=== PATIENT | female | born 1990 | race American Indian/Alaskan Native ===

== ENCOUNTER 2020-04-23 14:41 | Emergency (ER) | payer SELFPAY ==
[2020-04-23 15:03] VITALS: BP 149/93
[2020-04-23] MEDS ORDERED: IBUPROFEN 600 MG TAB PO ONE (15:26)
--- NOTE | 2020-04-23 15:31 | Emergency Department Report ---
ED ENT HPI - General Chief complaint: Dental/Oral Stated complaint: JAW LOCKING/CANT SLEEP Time Seen by Provider: 04/23/20 15:26 Source: patient Mode of arrival: Ambulatory Limitations: No Limitations - History of Present Illness Initial comments: 30-year-old -Portuguese female presents to the emergency room complaining of bilateral jaw popping and pain. Patient has a history of TMJ and has been off and on wearing her mouthguard. Patient states that it appears to be getting worse. Patient has not followed up with her dentist as she is a and she is not able to get into the [place] clinic secondary to COVID-19. Patient denies any fever chills no nausea no vomiting no trauma. Onset/Timin -: month(s) Severity: moderate Quality: aching Consistency: intermittent Improves with: none Worsens with: movement - Related Data Home Medications Medication Instructions Recorded Confirmed Last Taken Sertraline [Zoloft] 50 mg PO DAILY 04/23/20 04/23/20 Unknown traZODone [Desyrel] 100 mg PO QHS 04/23/20 04/23/20 Unknown Previous Rx's Medication Instructions Recorded Last Taken Type Baclofen [Lioresal] 10 mg PO TID #21 tab 04/23/20 Unknown Rx Ibuprofen [Motrin 600 MG tab] 600 mg PO Q8H PRN #30 tablet 04/23/20 Unknown Rx Allergies Allergy/AdvReac Type Severity Reaction Status Date / Time No Known Allergies Allergy Unverified 04/23/20 14:58 ED Dental HPI - General Chief complaint: Dental/Oral Stated complaint: JAW LOCKING/CANT SLEEP Time Seen by Provider: 04/23/20 15:26 Source: patient Mode of arrival: Ambulatory Limitations: No Limitations - Related Data Home Medications Medication Instructions Recorded Confirmed Last Taken Sertraline [Zoloft] 50 mg PO DAILY 04/23/20 04/23/20 Unknown traZODone [Desyrel] 100 mg PO QHS 04/23/20 04/23/20 Unknown Previous Rx's Medication Instructions Recorded Last Taken Type Baclofen [Lioresal] 10 mg PO TID #21 tab 04/23/20 Unknown Rx Ibuprofen [Motrin 600 MG tab] 600 mg PO Q8H PRN #30 tablet 04/23/20 Unknown Rx Allergies Allergy/AdvReac Type Severity Reaction Status Date / Time No Known Allergies Allergy Unverified 04/23/20 14:58 ED Review of Systems ROS: Stated complaint: JAW LOCKING/CANT SLEEP Other details as noted in HPI Comment: All other systems reviewed and negative ED Past Medical Hx - Past Medical History Previous Medical History?: Yes Hx Psychiatric Treatment: Yes (PTSD,ANXIETY,DEPRESSION) - Social History Smoking Status: Never Smoker Substance Use Type: None - Medications Home Medications: Home Medications Medication Instructions Recorded Confirmed Last Taken Type Baclofen [Lioresal] 10 mg PO TID #21 tab 04/23/20 Unknown Rx Ibuprofen [Motrin 600 MG tab] 600 mg PO Q8H PRN #30 tablet 04/23/20 Unknown Rx Sertraline [Zoloft] 50 mg PO DAILY 04/23/20 04/23/20 Unknown History traZODone [Desyrel] 100 mg PO QHS 04/23/20 04/23/20 Unknown History ED Physical Exam - General Limitations: No Limitations General appearance: alert, in no apparent distress - Head Head exam: Present: atraumatic, normocephalic - Eye Eye exam: Present: normal appearance - ENT ENT exam: Present: mucous membranes moist - Expanded ENT Exam Expanded Mouth exam: Present: other ( mandible stable able to open mouth) - Neck Neck exam: Present: normal inspection, full ROM - Respiratory Respiratory exam: Absent: accessory muscle use - Neurological Exam Neurological exam: Present: alert, oriented X3 - Psychiatric Psychiatric exam: Present: normal affect, normal mood - Skin Skin exam: Present: warm, dry, intact, normal color. Absent: rash ED Course Vital Signs 04/23/20 14:52 Temperature 98.7 F Pulse Rate 107 H Respiratory 16 Rate Blood Pressure 149/93 O2 Sat by Pulse 98 Oximetry ED Medical Decision Making - Medical Decision Making 30-year-old -Portuguese female presents to the emergency room complaining of bilateral jaw popping and pain. Patient has a history of TMJ and has been off and on wearing her mouthguard. Patient states that it appears to be getting worse. Patient has not followed up with her dentist as she is a and [facility]. Patient denies any fever chills no nausea no vomiting no trauma. Patient will be given ibuprofen. Discharged on ibuprofen and baclofen and a referral to [facility] Critical care attestation.: If time is entered above; I have spent that time in minutes in the direct care of this critically ill patient, excluding procedure time. ED Disposition Clinical Impression: History of TMJ disorder, TMJ arthralgia Disposition: TO HOME OR SELFCARE Is pt being admited?: No Does the pt Need Aspirin: No Condition: Stable Instructions: Temporomandibular Disorder (ED) Additional Instructions: Take pain medication and muscle relaxer as prescribed. Follow-up with a oral surgeon or dentist. Prescriptions: Baclofen [Lioresal] 10 mg PO TID #21 tab Ibuprofen [Motrin 600 MG tab] 600 mg PO Q8H PRN #30 tablet PRN Reason: Pain Referrals: [facility] [Outside] - 3-5 Days
== END 2020-04-23 16:18 | disposition home or self-care (01) ==
LOC: ED 14:41
DX: M26.623 Arthralgia of bilateral temporomandibular joint (principal); F43.11 Post-traumatic stress disorder, acute; F41.9 Anxiety disorder, unspecified; F32.89 Other specified depressive episodes
CPT/HCPCS: 99281